=== PATIENT | male | born 1970 | race Caucasian/White ===

== ENCOUNTER 2019-07-17 11:09 | Observation (INO) ==
[2019-07-17] MEDS ORDERED: HYDROmorphone 2 MG/1 ML VIAL IV STA (13:10)
[2019-07-17] MEDS ORDERED: ONDANSETRON 4 MG/2 ML VIAL IV STA (13:10)
[2019-07-17] MEDS ORDERED: SODIUM CHLORIDE 0.9% 1,000 ML IV STA (13:10)
[2019-07-17 13:54] LABS: Basophils % 0.2 % (0.0-0.8); Hematocrit 45.1 VOL% (42.0-52.0); Immature Granulocytes % 0.6 %; Immature Granulocytes Absolute 0.11 #; Lymphocytes # 1.2 10*3/uL (1.4-4.0); Mean Corpuscular HGB Conc 35.5 GM/DL (32-36); Mean Platelet Volume 11.3 FL (9.6-12.0); Monocytes % 7.1 % (1.7-12.7); Neutrophils % 86.1 % (38.7-73.9); Platelet Count 240 T/CUMM (130-400); Red Blood Count 4.85 MC/CUMM (3.8-5.5); Red Cell Distribution Width 12.1 % (9.3-17.3); White Blood Count 19.8 T/CUMM (4-12)
[2019-07-17 14:02] LABS: Alanine Aminotransferase 91 U/L (16-61); Albumin 4.2 G/DL (3.4-5.0); Alkaline Phosphatase 55 U/L (45-117); Aspartate Amino Transferase 35 U/L (0-37); Blood Urea Nitrogen 12 MG/DL (7-18); Calcium 9.7 MG/DL (8.5-10.1); Estimated Glom Filtration Rate 116 ML/MIN; Glucose 137 MG/DL (74-106); Osmolality,Calculated 276.7 MOS/KG (273-304)
[2019-07-17] MEDS ORDERED: LEVOFLOXACIN INJ 750 MG in PREMIX 1 EACH IV STA (14:31)
[2019-07-17 14:34] LABS: Apearance,Urine CLEAR (Clear); Bilirubin,Urine Negative (Negative); Blood, Urine Negative (Negative); Glucose,Urine (UA) 150 mg/dL (Negative); Ketones,Urine 5 mg/dL (Negative); Mucus,Urine Occasional /LPF (Occasional); Nitrite,Urine Negative (Negative); Protein,Urine 30 MG/DL; Urine Color Yellow (Yellow); Urine Specific Gravity 1.023 (1.001-1.035); Urine Urobilinogen < 2.0 EU/DL (0.2-1.0)
[2019-07-17] MEDS: LACTATED RINGERS 1,000 ML IV SCH (18:05)
[2019-07-17] MEDS: HYDROmorphone 2 MG/1 ML VIAL IV PRN (18:05)
[2019-07-17] MEDS: ONDANSETRON 4 MG/2 ML VIAL IV PRN (18:06)
[2019-07-17] MEDS ORDERED: ENOXAPARIN 40 MG/0.4 ML SYRINGE SUBCUT SCH (21:00)
[2019-07-17] MEDS: ACETAMINOPHEN 325 MG TABLET PO PRN (23:34)
[2019-07-18] MEDS: LACTATED RINGERS 1,000 ML IV SCH ×2 (02:04→13:25)
[2019-07-18] MEDS: ACETAMINOPHEN 325 MG TABLET PO PRN (05:45)
[2019-07-18] MEDS: ONDANSETRON 4 MG/2 ML VIAL IV PRN ×2 (05:46→10:19)
[2019-07-18] MEDS ORDERED: INDOCYANINE GREEN 25 MG VIAL IV ONE (08:00)
[2019-07-18] MEDS ORDERED: CLINDAMYCIN INJ 900 MG in PREMIX 1 EACH IV ONE (08:00)
[2019-07-18] MEDS ORDERED: TISSUE ADHESIVE 1 EACH APPLICATOR TOP ONE (08:07)
[2019-07-18] MEDS ORDERED: LIDOCAINE 1%/EPI INJ 20 ML VIAL ONE (08:07)
[2019-07-18] MEDS ORDERED: BUPIVACAINE MPF 0.25% 30 ML VIAL ONE (08:07)
[2019-07-18] MEDS ORDERED: PANTOPRAZOLE 40 MG TABLET PO SCH (09:00)
[2019-07-18] MEDS ORDERED: LIDOCAINE 2% 5 ML VIAL ONE (09:57)
[2019-07-18] MEDS ORDERED: propofoL 200 MG/20 ML VIAL IV ONE (09:57)
[2019-07-18] MEDS ORDERED: LABETALOL 20 MG/4 ML SYRINGE IV ONE (09:57)
[2019-07-18] MEDS ORDERED: SEVOFLURANE 1 UNIT/15 MINUTE INH ONE (09:57)
[2019-07-18] MEDS ORDERED: MIDAZOLAM 2 MG/2 ML VIAL ONE (09:57)
[2019-07-18] MEDS ORDERED: fentaNYL 100 MCG/2 ML VIAL ONE (09:58)
[2019-07-18] MEDS ORDERED: NEOSTIGMINE 10 MG/10 ML VIAL ONE (09:58)
[2019-07-18] MEDS ORDERED: ROCURONIUM 100 MG/10 ML VIAL IV ONE (09:58)
[2019-07-18] MEDS ORDERED: LACTATED RINGERS 1,000 ML IV ONE (09:58)
[2019-07-18] MEDS ORDERED: ONDANSETRON 4 MG/2 ML VIAL ONE ×2 (09:58→10:16)
[2019-07-18] MEDS ORDERED: KETOROLAC 30 MG/1 ML VIAL ONE (09:58)
[2019-07-18] MEDS ORDERED: GLYCOPYRROLATE 0.4 MG/2 ML VIAL ONE (09:58)
[2019-07-18] MEDS ORDERED: HYDROmorphone 2 MG/1 ML VIAL ONE (10:21)
[2019-07-18] MEDS ORDERED: HYDROmorphone 2 MG/1 ML VIAL IV PRN (10:27)
[2019-07-18] MEDS: HYDROmorphone 2 MG/1 ML VIAL IV PRN (13:07)
[2019-07-18 13:15] VITALS: BP 136/83
[2019-07-18] MEDS ORDERED: LEVOFLOXACIN INJ 750 MG in PREMIX 1 EACH IV SCH (15:00)
== END 2019-07-18 14:27 | disposition home or self-care (01) ==
LOC: N.ED 11:09 → N.EDINP 11:09 → N.3E 17:04
PROVIDERS: ADMIT Surgery; ATTEND Surgery

== ENCOUNTER 2019-07-18 19:09 | Inpatient (IN) ==
[2019-07-18 20:11] LABS: Basophils % 0.2 % (0.0-0.8); Eosinophils % 0.1 % (0.00-10.9); Hematocrit 41.5 VOL% (42.0-52.0); Hemoglobin 14.4 GM/DL (14.0-18.0); Immature Granulocytes % 0.8 %; Immature Granulocytes Absolute 0.13 #; Lymphocytes # 0.8 10*3/uL (1.4-4.0); Lymphocytes % 4.7 % (21.2-54.2); Mean Corpuscular HGB Conc 34.7 GM/DL (32-36); Mean Corpuscular Volume 94.7 FL (87-102); Mean Platelet Volume 10.8 FL (9.6-12.0); Monocytes % 9.8 % (1.7-12.7); Neutrophils % 84.4 % (38.7-73.9); Platelet Count 182 T/CUMM (130-400); Red Blood Count 4.38 MC/CUMM (3.8-5.5); Red Cell Distribution Width 12.1 % (9.3-17.3); White Blood Count 15.9 T/CUMM (4-12)
[2019-07-18 20:24] LABS: Albumin 3.6 G/DL (3.4-5.0); Bilirubin,Total 3.9 MG/DL (0.2-1.0); Calcium 8.6 MG/DL (8.5-10.1); Osmolality,Calculated 270.1 MOS/KG (273-304); Total Protein 7.2 G/DL (6.4-8.3)
[2019-07-18 20:31] LABS: Lymphocytes 4 % (20-55); Segmented Neutrophils 90 % (50-85); Total Cells Counted 100
[2019-07-18 20:41] LABS: Apearance,Urine CLEAR (Clear); Blood, Urine Negative (Negative); Glucose,Urine (UA) 50 mg/dL (Negative); Hyaline Casts,Urine 1 /LPF (0-3); Ketones,Urine 5 mg/dL (Negative); Mucus,Urine Moderate /LPF (Occasional); Nitrite,Urine Negative (Negative); Protein,Urine 30 MG/DL; Squamous Epithelial Cell,Urine Occasional /HPF (0-10); Urine Color Amber (Yellow); Urine Specific Gravity 1.026 (1.001-1.035); WBC,Urine 1 /HPF (0-6)
[2019-07-18] MEDS ORDERED: MORPHINE 4 MG/1 ML VIAL IV STA (20:41)
[2019-07-18] MEDS ORDERED: IBUPROFEN 600 MG TABLET PO STA (20:41)
[2019-07-18] MEDS ORDERED: ONDANSETRON 4 MG/2 ML VIAL IV STA (20:41)
[2019-07-18 20:42] LABS: Bilirubin,Urine Small mg/dL (Negative)
[2019-07-18] MEDS ORDERED: HALOPERIDOL 5 MG/ML AMP ONE (21:11)
[2019-07-18] MEDS ORDERED: diphenhydrAMINE 50 MG/1 ML VIAL ONE (21:11)
[2019-07-18] MEDS ORDERED: HYDROmorphone 2 MG/1 ML VIAL IV STA (21:17)
[2019-07-18] MEDS ORDERED: KETOROLAC 30 MG/1 ML VIAL IV STA (21:17)
[2019-07-18] MEDS ORDERED: LEVOFLOXACIN INJ 750 MG in PREMIX 1 EACH IV STA (21:18)
[2019-07-18] MEDS ORDERED: LACTATED RINGERS 1,000 ML IV ONE (21:42)
[2019-07-18] MEDS ORDERED: PROMETHAZINE 25 MG/1 ML VIAL IM PRN (22:23)
[2019-07-18] MEDS ORDERED: LEVOFLOXACIN INJ 750 MG in PREMIX 1 EACH IV SCH (23:00)
[2019-07-19] MEDS: HYDROmorphone 2 MG/1 ML VIAL IV PRN ×6 (01:51→22:26)
[2019-07-19] MEDS: KETOROLAC 15 MG/1 ML VIAL IV SCH ×4 (03:59→21:44)
[2019-07-19] MEDS: LACTATED RINGERS 1,000 ML IV SCH ×3 (06:06→16:27)
[2019-07-19] MEDS: ONDANSETRON 4 MG/2 ML VIAL IV PRN ×2 (06:06→22:26)
[2019-07-19 06:13] LABS: Basophils % 0.1 % (0.0-0.8); Eosinophils % 0.2 % (0.00-10.9); Hemoglobin 12.8 GM/DL (14.0-18.0); Immature Granulocytes % 0.4 %; Immature Granulocytes Absolute 0.08 #; Lymphocytes # 1.4 10*3/uL (1.4-4.0); Lymphocytes % 7.9 % (21.2-54.2); Mean Corpuscular HGB Conc 34.6 GM/DL (32-36); Mean Corpuscular Volume 95.6 FL (87-102); Mean Platelet Volume 11.1 FL (9.6-12.0); Monocytes % 9.8 % (1.7-12.7); Neutrophils % 81.6 % (38.7-73.9); Platelet Count 149 T/CUMM (130-400); Red Blood Count 3.87 MC/CUMM (3.8-5.5); Red Cell Distribution Width 12.2 % (9.3-17.3); White Blood Count 17.9 T/CUMM (4-12)
[2019-07-19 06:55] LABS: Bilirubin,Direct 1.76 MG/DL (0.0-0.20); Bilirubin,Total 3.6 MG/DL (0.2-1.0); Calcium 8.5 MG/DL (8.5-10.1); Osmolality,Calculated 269.1 MOS/KG (273-304); Total Protein 6.5 G/DL (6.4-8.3)
[2019-07-19] MEDS: PANTOPRAZOLE 40 MG VIAL IV SCH (08:32)
[2019-07-19] MEDS: allopurinoL 300 MG TABLET PO SCH (08:33)
[2019-07-19] MEDS: METOPROLOL SUCCINATE XL 25 MG TABLET PO SCH ×2 (08:33→20:46)
[2019-07-19] MEDS: ENOXAPARIN 40 MG/0.4 ML SYRINGE SUBCUT SCH (12:29)
[2019-07-19] MEDS ORDERED: LEVOFLOXACIN INJ 750 MG in PREMIX 1 EACH IV SCH (21:00)
[2019-07-20] MEDS: LACTATED RINGERS 1,000 ML IV SCH (02:35)
[2019-07-20] MEDS: KETOROLAC 15 MG/1 ML VIAL IV SCH ×2 (03:45→11:17)
[2019-07-20] MEDS: ONDANSETRON 4 MG/2 ML VIAL IV PRN (04:10)
[2019-07-20] MEDS ORDERED: ACETAMINOPHEN 325 MG TABLET PO PRN (04:13)
[2019-07-20 04:56] LABS: Basophils % 0.3 % (0.0-0.8); Eosinophils # 0.2 10*3/uL (0.0-0.87); Eosinophils % 1.2 % (0.00-10.9); Hematocrit 34.2 VOL% (42.0-52.0); Hemoglobin 11.6 GM/DL (14.0-18.0); Immature Granulocytes % 0.8 %; Immature Granulocytes Absolute 0.11 #; Lymphocytes # 1.5 10*3/uL (1.4-4.0); Lymphocytes % 10.9 % (21.2-54.2); Mean Corpuscular HGB Conc 33.9 GM/DL (32-36); Mean Corpuscular Volume 96.3 FL (87-102); Mean Platelet Volume 11.1 FL (9.6-12.0); Monocytes % 9.9 % (1.7-12.7); Neutrophils % 76.9 % (38.7-73.9); Platelet Count 143 T/CUMM (130-400); Red Blood Count 3.55 MC/CUMM (3.8-5.5); Red Cell Distribution Width 12.3 % (9.3-17.3); White Blood Count 13.6 T/CUMM (4-12)
[2019-07-20 05:18] LABS: Albumin 2.7 G/DL (3.4-5.0); Bilirubin,Total 1.6 MG/DL (0.2-1.0); Calcium 8.6 MG/DL (8.5-10.1); Osmolality,Calculated 264.4 MOS/KG (273-304); Total Protein 6.3 G/DL (6.4-8.3)
[2019-07-20] MEDS: allopurinoL 300 MG TABLET PO SCH (09:30)
[2019-07-20] MEDS: METOPROLOL SUCCINATE XL 25 MG TABLET PO SCH (09:30)
[2019-07-20] MEDS: PANTOPRAZOLE 40 MG VIAL IV SCH (09:40)
[2019-07-20] MEDS: ENOXAPARIN 40 MG/0.4 ML SYRINGE SUBCUT SCH (13:09)
[2019-07-20 17:19] VITALS: BP 132/80
== END 2019-07-20 17:00 | disposition home or self-care (01) | DRG 948 ==
LOC: N.ED 19:09 → N.EDINP 21:10 → N.2E 21:35
PROVIDERS: ADMIT Surgery; ATTEND Surgery